=== PATIENT | female | born 1970 | race African-American/Black ===

== ENCOUNTER 2017-11-18 07:48 | Inpatient (IN) | payer OTHER, BC ==
[2017-11-17 12:31] VITALS: BMI 37.8
[2017-11-18] MEDS ORDERED: ROPIVACAINE HCL 0.5% 30ML VIAL ONE (08:09)
[2017-11-18] MEDS ORDERED: DEXAMETHASONE SOD PHOSPHATE/PF 10 MG/ML SDV ONE (08:09)
[2017-11-18] MEDS ORDERED: MIDAZOLAM HCL 2 MG/2 ML SINGLE DOSE VIAL ONE ×2 (08:10)
--- NOTE | 2017-11-18 08:44 | HP ---
Past Medical History - Primary Care Physician PCP:: Oral Loya - Admission Chief Complaint: menometrorrhagia, anemia, adenomyosis History of Present Illness: 47 yo f with one previous c/s , hx of of heavy irregular vaginal bleeding , adenomyosis, severe anemia, txed with iron infusion , cont to be severly anemic, declined hormonal and ablation, requesting hysterectomy, risks has discussed with patient. History Source: Patient Limitations to Obtaining History: No Limitations - Past Medical History Cardiovascular: Yes: HTN Pulmonary: Yes: Asthma, COPD ...: 1 ...Para: 1 Heme/Onc: Yes: Anemia - Past Surgical History Past Surgical History: Yes: Hx Myomectomy: No Hx Transabdominal Cerclage: No - Smoking History Smoking history: Never smoked Have you smoked in the past 12 months: No - Alcohol/Substance Use Hx Alcohol Use: No - Social History History of Recent Travel: No Home Medications - Allergies Allergies/Adverse Reactions: Allergies Allergy/AdvReac Type Severity Reaction Status Date / Time clarithromycin [From Biaxin] Allergy Severe Hives Verified 11/17/17 12:52 - Home Medications Home Medications: Ambulatory Orders Ferrous Sulfate 325 mg PO TID 08/28/17 Metoprolol Succinate [Toprol Xl] 50 mg PO DAILY 08/28/17 Olmesartan/Hydrochlorothiazide [Benicar Hct 40-25 mg Tablet] 1 tab PO DAILY Albuterol Sulfate Inhaler - [Ventolin Hfa Inhaler -] 1 - 2 inh PO PRN PRN Fluticasone/Salmeterol [Advair 250-50 Diskus] 1 each IH DAILY 11/17/17 Nasonex 50 mcg PRN 11/17/17 Review of Systems - Review of Systems Constitutional: reports: Lethargy, Weakness Eyes: reports: No Symptoms HENT: reports: No Symptoms Neck: reports: No Symptoms Cardiovascular: reports: No Symptoms Respiratory: reports: No Symptoms Gastrointestinal: reports: Abdominal Pain, Bloating Genitourinary: reports: Vaginal Bleeding Breasts: reports: No Symptoms Reported Musculoskeletal: reports: No Symptoms Integumentary: reports: No Symptoms Neurological: reports: No Symptoms Endocrine: reports: No Symptoms Hematology/Lymphatic: reports: No Symptoms Physical Exam-OUTREACH EDUCATOR Vital Signs: Vital Signs Temperature 98.2 F 11/18/17 08:11 Pulse Rate 76 11/18/17 08:11 Respiratory Rate 18 11/18/17 08:11 Blood Pressure 121/66 11/18/17 08:11 O2 Sat by Pulse Oximetry (%) 99 11/18/17 08:12 Constitutional: Yes: Well Nourished, No Distress, Calm Eyes: Yes: WNL, Conjunctiva Clear, EOM Intact HENT: Yes: WNL, Atraumatic, Normocephalic Neck: Yes: WNL, Supple, Trachea Midline Cardiovascular: Yes: WNL, Regular Rate and Rhythm Respiratory: Yes: WNL, Regular, CTA Bilaterally Gastrointestinal: Yes: WNL ...Rectal Exam: Yes: WNL Renal/: Yes: WNL Pelvis: Yes: WNL External Genitalia: Yes: Normal Vaginal Exam: Yes: Normal Cervix: Yes: Normal Uterus: Yes: Enlarged, Firm Adnexa: Not Palpable: Left, Right Breast(s): Yes: WNL Musculoskeletal: Yes: WNL Extremities: Yes: WNL Edema: No Integumentary: Yes: WNL Neurological: Yes: WNL, Alert, Oriented ...Motor Strength: WNL Psychiatric: Yes: WNL, Alert, Oriented Problem List - Problem (1) Uterus, adenomyosis Code(s): N80.0 - ENDOMETRIOSIS OF UTERUS (2) Anemia Code(s): D64.9 - ANEMIA, UNSPECIFIED Qualifiers: Anemia type: iron deficiency Iron deficiency anemia type: chronic blood loss Qualified Code(s): D50.0 - Iron deficiency anemia secondary to blood loss (chronic) Assessment/Plan supracervical abdominal hysterectomy , bilateral oleksandr;pingectomy. possible BSO
[2017-11-18] MEDS ORDERED: ceFAZolin 2 GRAM PREMIX BAG IVPB ONE (09:00)
[2017-11-18] MEDS ORDERED: ROCURONIUM BROMIDE 50 MG/5 ML VIAL ONE ×2 (09:34→10:20)
[2017-11-18] MEDS ORDERED: PROPOFOL 20 ML ONE ×2 (09:34→09:44)
[2017-11-18] MEDS ORDERED: ALBUTEROL SO4 18 GM HFA INHALER IH ONE (09:34)
[2017-11-18] MEDS ORDERED: fentaNYL CITRATE 250 MCG/5 ML VIAL ONE (09:34)
[2017-11-18] MEDS ORDERED: ceFAZolin SODIUM 1 GM VIAL ONE (09:55)
[2017-11-18] MEDS ORDERED: ceFAZolin SODIUM 1 GM VIAL IVPB ONE (09:57)
[2017-11-18] MEDS ORDERED: DEXAMETHASONE SOD PHOSPHATE 4 MG/1 ML VIAL ONE (09:59)
[2017-11-18] MEDS ORDERED: ePHEDrine SULFATE 50 MG/1 ML AMPULE ONE (10:02)
[2017-11-18] MEDS ORDERED: ONDANSETRON 4 MG/2 ML VIAL IVPUSH PRN ×2 (10:34→12:17)
[2017-11-18] MEDS ORDERED: PROMETHAZINE HCL 25 MG/1 ML VIAL IVPUSH PRN (10:34)
[2017-11-18] MEDS ORDERED: LACTATED RINGERS SOLUTION 1,000 ML IV SCH (10:45)
[2017-11-18] MEDS ORDERED: HYDROmorphone *PCA* 10MG/50ML DISP.SYRIN PCA SCH (10:45)
[2017-11-18] MEDS ORDERED: GLYCOPYRROLATE 0.2 MG/1 ML VIAL ONE (11:50)
[2017-11-18] MEDS ORDERED: NEOSTIGMINE METHYLSULFATE 0.5 MG/ML - 10 ML MDV ONE (11:51)
[2017-11-18] MEDS ORDERED: oxyCODONE HCL 5 MG TABLET PO PRN (12:17)
[2017-11-18] MEDS: ELECTROLYTE-148 SOLN 1,000 ML IV SCH ×2 (12:30→23:41)
[2017-11-18] MEDS ORDERED: HYDROmorphone *PCA* 10MG/50ML DISP.SYRIN PCA ONE (12:40)
[2017-11-18] MEDS: IBUPROFEN 800 MG/8 ML IJ IVPB PRN ×2 (12:55→19:41)
--- NOTE | 2017-11-18 13:01 | OP ---
DATE OF OPERATION: 11/18/2017 PREOPERATIVE DIAGNOSES: Menometrorrhagia, anemia, pelvic pain. POSTOPERATIVE DIAGNOSES: Menometrorrhagia, anemia, pelvic pain, endometriosis, and pelvic adhesions, rule out adenomyosis. SURGEON: Oral Loya MD STUDIO TECHNICIAN VIDEO OPERATOR: Og Her MD ANESTHESIA: General. ESTIMATED BLOOD LOSS: 100 mL DESCRIPTION OF OPERATION: Patient was taken to the operating room. Under adequate general anesthesia and in the supine position, abdomen and perineum were prepped and draped. Pfannenstiel abdominal skin incision was made over the previous incision. Abdominal wall was cut layer by layer until peritoneum was exposed. Upon entering the abdominal cavity, there were multiple omental adhesions to the anterior abdominal wall, which were lysed with cautery, and bowels were packed away. Both ovaries were stuck behind the uterus to the cul-de-sac area, and there was evidence of endometrioma on the right ovary with chocolate cyst. There was also cul-de-sac adhesion of the uterus, and the uterus appeared to be bulky. Bladder was normal. Both round ligaments and uterosacral ligaments were prominent. At this time, both round ligaments were identified, clamped with a LigaSure bipolar cautery, cauterized, and cut. Then, two straight Kochers were placed at the cornual region of the uterus. Then, both ovaries were lysed meticulously with Metzenbaum scissors and also cautery from the posterior cul-de-sac area. There was an endometrioma in the right ovary. At this time, the infundibulopelvic ligament was identified on the right, a hole made in the broad ligament, and a Honey clamp was placed in the infundibulopelvic area, cut, and then, the infundibulopelvic area on the right side was tied with 2-0 Vicryl ties. At this time, the bladder flap was developed, and bladder was pushed down. The left tube was identified and grasped with a Jackson clamp and cauterized along with the salpinx with the bipolar LigaSure cautery, and then, left tube was removed. At this time, the left ovary and ligament were grasped with a Honey clamp and cut and the clamp replaced with 0 Vicryl ligature suture. At this time, bladder was further pushed down. Uterine artery was identified bilaterally, clamped with Honey clamp, cut, and the clamp replaced with 0 Vicryl suture bilaterally. Bladder was further pushed down, and then, paracervical area was grasped with Honey clamp, cut, and the clamp replaced with a ligature suture bilaterally. At this time, the specimen was removed above the cervix, and the cervix was sutured with 1 Vicryl continuous interlocking suture. Then, pelvic cavity several times irrigated. There was bleeding from the left cervical stump, which was sutured with ligature suture of 1 Vicryl in an interrupted suture, and hemostasis was established. Then, the pelvic cavity several times irrigated, and then, no more bleeding was seen. All the pedicles were dry. All the lap pad, sponge, and instrument counts were correct. Then, both ureters were visually checked, were normal. Peritoneum was closed with 0 Vicryl continuous suture. Muscles were brought together with interrupted using of 0 Vicryl. Fascia was closed with 0 Vicryl continuous suture. Subcutaneous fat with interrupted suture of 0 Vicryl, and the skin was closed with 3-0 Vicryl continuous, subcuticular suture. The patient tolerated the procedure well, left the OR in good condition. Parth [id number]
[2017-11-18] MEDS: CEFAZOLIN 1 GM/D5W 1 GM/50 ML BAG IVPB SCH (17:46)
[2017-11-18] MEDS ORDERED: ALBUTEROL SO4 18 GM HFA INHALER IH PRN (19:28)
[2017-11-19] MEDS: CEFAZOLIN 1 GM/D5W 1 GM/50 ML BAG IVPB SCH ×2 (01:19→10:15)
[2017-11-19] MEDS: IBUPROFEN 800 MG/8 ML IJ IVPB PRN ×2 (07:33→13:36)
--- NOTE | 2017-11-19 08:29 | PN ---
Progress Note (short form) - Note Progress Note: Anesthesia POD#2 S/P Hysterectomy and DISPLAY MANAGER Patient is on oral meds,no N/V Ok to Discontinue the DISPLAY MANAGER. Glo Rene MD.
[2017-11-19] MEDS: ELECTROLYTE-148 SOLN 1,000 ML IV SCH (08:34)
[2017-11-19] MEDS ORDERED: BISACODYL 10 MG SUPP.RECT PR PRN (09:15)
[2017-11-19] MEDS ORDERED: PANTOPRAZOLE 40 MG TABLET (FP) PO PRN (09:18)
[2017-11-19] MEDS ORDERED: PATIENT'S OWN MEDICATION (NON-FORMULARY) (Olmesartan/Hydrochlorothiazide [Benicar Hct 40-2 PO SCH (10:00)
[2017-11-19] MEDS: ENOXAPARIN NA (PORCINE) 40 MG/0.4 ML DISP.SYRIN SQ SCH (10:17)
[2017-11-19 10:25] LABS: HEMATOCRIT 24.8 % (32.4-45.2); HEMOGLOBIN 7.7 GM/dL (10.7-15.3); MCHC 31.1 g/dl (32.0-36.0); MEAN CELL VOLUME 60.9 fl (80-96); PLATELET COUNT 255 K/MM3 (134-434); RBC 4.07 M/mm3 (3.60-5.2); RDW 19.9 % (11.6-15.6); WHITE BLOOD COUNT 10.6 K/mm3 (4.0-10.0)
[2017-11-19 10:26] LABS: MCH 18.9 pg (25.7-33.7)
[2017-11-19] MEDS: VALSARTAN 160 MG TABLET (UD) PO SCH (10:42)
[2017-11-19] MEDS: HYDROCHLOROTHIAZIDE 25 MG TABLET (FP) PO SCH (10:43)
[2017-11-19 11:04] LABS: ANION GAP 6 (8-16); BLOOD UREA NITROGEN 12 mg/dL (7-18); CALCIUM 7.8 mg/dL (8.5-10.1); CHLORIDE 106 mmol/L (98-107); CO2 27 mmol/L (21-32); CREATININE 0.7 mg/dL (0.55-1.02); GLUCOSE,RANDOM 145 mg/dL (74-106); POTASSIUM 3.7 mmol/L (3.5-5.1); SODIUM 139 mmol/L (136-145)
[2017-11-19] MEDS: SIMETHICONE 80 MG TAB.CHEW (FP) PO PRN ×2 (12:03→18:56)
[2017-11-19] MEDS: ACETAMINOPHEN 500 MG TABLET (FP) PO PRN ×2 (12:54→18:46)
--- NOTE | 2017-11-19 18:29 | PN ---
Progress Note (short form) - Note Progress Note: pod 1,s/p supracervical hysterectomy feels tiered , has mild incisionl pain scale CBC, BMP 11/19/17 09:55 11/19/17 09:55 Last Vital Signs Temp Pulse Resp BP Pulse Ox 98.5 F 72 18 121/68 100 11/19/17 14:00 11/19/17 14:00 11/19/17 14:00 11/19/17 14:00 11/18/17 16:47 abdomen soft, no distension, no cva, BS present incision dry, clean no vaginal bleeding no calf tenderness impression doing well , anemia, asymptomatic, bp , pulse normal, blood transfusion discussed , declined advised ambulate, roblero management Problem List - Problems (1) Uterus, adenomyosis Code(s): N80.0 - ENDOMETRIOSIS OF UTERUS (2) Anemia Code(s): D64.9 - ANEMIA, UNSPECIFIED Qualifiers: Anemia type: iron deficiency Iron deficiency anemia type: chronic blood loss Qualified Code(s): D50.0 - Iron deficiency anemia secondary to blood loss (chronic)
[2017-11-19] MEDS ORDERED: PCA PUMP KEY 1 EACH EACH ONE (18:40)
[2017-11-19] MEDS: IBUPROFEN 600 MG TABLET (FP) PO PRN (20:45)
[2017-11-20] MEDS: ACETAMINOPHEN 500 MG TABLET (FP) PO PRN ×2 (05:59→12:01)
[2017-11-20] MEDS: SIMETHICONE 80 MG TAB.CHEW (FP) PO PRN ×2 (07:46→13:42)
[2017-11-20] MEDS: IBUPROFEN 600 MG TABLET (FP) PO PRN ×2 (07:47→13:42)
[2017-11-20] MEDS: ENOXAPARIN NA (PORCINE) 40 MG/0.4 ML DISP.SYRIN SQ SCH (10:19)
[2017-11-20] MEDS: VALSARTAN 160 MG TABLET (UD) PO SCH (10:31)
[2017-11-20] MEDS: HYDROCHLOROTHIAZIDE 25 MG TABLET (FP) PO SCH (10:32)
--- NOTE | 2017-11-20 13:48 | PN ---
Progress Note (short form) - Note Progress Note: pod 2, doing well, ambulating, passing gas, no dizziness, no headacheambulate, CBC, BMP 11/19/17 09:55 11/19/17 09:55 Last Vital Signs Temp Pulse Resp BP Pulse Ox 97.6 F 74 20 133/84 100 11/20/17 08:49 11/20/17 08:49 11/20/17 08:49 11/20/17 08:49 11/18/17 16:47 abdomen soft, no distension, no cva , incision dry, clean, no discharge no calf tenderness , no edema plan d/c home on po iron, vit innstruction given if pain, bleeding, dizziness , call md, follow up office 2 weeks follow up with PCP as well Problem List - Problems (1) Uterus, adenomyosis Code(s): N80.0 - ENDOMETRIOSIS OF UTERUS (2) Anemia Code(s): D64.9 - ANEMIA, UNSPECIFIED Qualifiers: Anemia type: iron deficiency Iron deficiency anemia type: chronic blood loss Qualified Code(s): D50.0 - Iron deficiency anemia secondary to blood loss (chronic)
--- NOTE | 2017-11-20 13:51 | DS ---
Physical Exam-TELEMETRY NURSE Vital Signs: Vital Signs Temperature 97.6 F 11/20/17 08:49 Pulse Rate 74 11/20/17 08:49 Respiratory Rate 20 11/20/17 08:49 Blood Pressure 133/84 11/20/17 08:49 O2 Sat by Pulse Oximetry (%) 100 11/18/17 16:47 Constitutional: Yes: Well Nourished, No Distress, Calm Eyes: Yes: WNL, Conjunctiva Clear, EOM Intact HENT: Yes: WNL, Atraumatic, Normocephalic Neck: Yes: WNL, Supple, Trachea Midline Cardiovascular: Yes: WNL, Regular Rate and Rhythm Respiratory: Yes: WNL, Regular, CTA Bilaterally Gastrointestinal: Yes: WNL ...Rectal Exam: Yes: WNL Renal/: Yes: WNL Breast(s): Yes: WNL Musculoskeletal: Yes: WNL Extremities: Yes: WNL Edema: No Integumentary: Yes: WNL Wound/Incision: Yes: Clean/Dry, Well Approximated, Sutures Intact Neurological: Yes: WNL, Alert, Oriented ...Motor Strength: WNL Psychiatric: Yes: WNL, Alert, Oriented Labs: CBC, BMP 11/19/17 09:55 11/19/17 09:55 Discharge Summary Reason For Visit: ADENOMYOSIS, IRON DEFICIENCY SECONDARY TO BLOOD LO Current Active Problems Anemia (Acute) Uterus, adenomyosis (Acute) Procedures: Principal: supracervical abdominal hysterectomy, RT salpingooophrectomy, LT salpingectomy Hospital Course: hx of anemai, was asymptomatic, d/c home on iron, vit Condition: Good - Instructions Diet, Activity, Other Instructions: regular diet, follow up office 2 weeks, if fever, pain, call md Referrals: Oral Loya MD [Staff Physician] - Disposition: HOME - Home Medications Comprehensive Discharge Medication List: Ambulatory Orders Ferrous Sulfate 325 mg PO TID 08/28/17 Metoprolol Succinate [Toprol Xl] 50 mg PO DAILY 08/28/17 Olmesartan/Hydrochlorothiazide [Benicar Hct 40-25 mg Tablet] 1 tab PO DAILY Albuterol Sulfate Inhaler - [Ventolin Hfa Inhaler -] 1 - 2 inh PO PRN PRN Fluticasone/Salmeterol [Advair 250-50 Diskus] 1 each IH DAILY 11/17/17 Nasonex 50 mcg PRN 11/17/17 Ibuprofen [Motrin -] 600 mg PO QID #28 tablet 11/19/17 Acetaminophen [Tylenol -] 1,000 mg PO Q6H #60 tablet 11/20/17
[2017-11-20 13:52] VITALS: BP 139/69; PULSE 69; TEMP 98
--- NOTE | 2017-11-20 15:29 | PATH ---
Surgical Pathology Report Patient Name: DENISE MORENO [facility]. Rec. #: [id number] /Age/Gender: 1970 (Age: 47) / F Account: [id number] Location: [facility] OBS/CONSTRUCTION EQUIPMENT TECHNICIAN Taken: 11/18/2017 Received: 11/18/2017 Reported: 11/20/2017 Physicians: Oral Loya M.D. Specimen(s) Received A: LEFT FALLOPIAN TUBE B: UTERUS, RIGHT TUBES AND RIGHT OVARY C: TISSUE OF SKIN LESION LOCATED NEAR INCESION Clinical History Adenomyosis, anemia, menorrhagia Final Diagnosis A. FALLOPIAN TUBE, LEFT, SALPINGECTOMY: FALLOPIAN TUBE WITH PARATUBAL CYST. B. UTERUS, FALLOPIAN TUBE AND OVARY, RIGHT, SUPRACERVICAL HYSTERECTOMY, OOPHORECTOMY AND SALPINGECTOMY: SECRETORY ENDOMETRIUM. MYOMETRIUM WITH FOCAL ADENOMYOSIS AND LEIOMYOMA(S). BENIGN ENDOCERVICAL TISSUE. RIGHT FALLOPIAN TUBE WITH PARATUBAL CYST. RIGHT OVARY WITH ENDOMETRIOTIC CYST(S). C. SKIN, LESION, EXCISION: BENIGN CAPILLARY HEMANGIOMA. Electronically Signed Namrata Rausch M.D. Gross Description A. Received in formalin labeled "left fallopian tube," is a 4.5 cm in length fimbriated fallopian tube. The outer surface is dewitt-estrada with a 1 cm in greatest dimension attached paratubal cyst. Sectioning reveals an unremarkable lumen. Greeting Card Editor sections are submitted in 2 cassettes as follows: 1-fimbria; 2-cross sections of fallopian tube. B. Received in formalin labeled "uterus, right fallopian tube, right ovary," is a 219 g supracervically amputated uterus with an attached right fallopian tube and right ovary. The uterus measures 8.5 cm from superior to inferior, 7 cm from left to right and 6.8 cm from anterior to posterior. The serosa is dewitt-pink and smooth. The endometrial cavity measures 6.5 cm in length and 3 cm from cornu to cornu. The endometrium is dewitt and lush, measuring up to 0.4 cm in thickness. The myometrium is dewitt-pink and trabeculated, measuring up to 3.3 cm in thickness. The myometrium displays multiple intramural nodules, measuring up to 1.3 cm in greatest dimension. The cut surface of the nodules is dewitt, rubbery and displays a whorled architecture. No areas of hemorrhage or necrosis are identified. The right fimbriated fallopian tube measures 5 cm in length. The outer surface is dewitt-estrada and smooth. Sectioning reveals an unremarkable lumen. The right ovary measures 4.5 x 3.3 x 3.0 cm. The outer surface is dewitt-estrada with a focal defect. Sectioning reveals multiple hemorrhagic cysts containing brown blood, measuring up to 1.8 cm in greatest dimension. Greeting Card Editor sections are submitted in 13 cassettes as follows: 1-cervical stump margin of resection; 3-0-doqidblx endomyometrium; 4-posterior endomyometrium; 5-additional posterior endomyometrium; 5-2-dsrzxlgv; 8-right fallopian tube fimbria; 9-cross sections of right fallopian tube; 10-13-right ovary. C. Received in formalin labeled "skin lesion near incision," is a 0.5 x 0.3 x 0.2 cm dewitt, polypoid portion of skin. The specimen is submitted in toto in one cassette. 11/19/2017 [facility]11/19/2017
== END 2017-11-20 15:50 | disposition home or self-care (01) | DRG 743 ==
LOC: JSAMEDAYSX 07:48 → EDSTATUS 09:00 → J3W 15:20
PROVIDERS: ADMIT Obstetrics & Gynecology; ATTEND Obstetrics & Gynecology
PROC: 0UT70ZZ Resection of Bilateral Fallopian Tubes, Open Approach (ICD-10-PCS; 2017-11-18)
PROC: 0UT90ZL Resection of Uterus, Supracervical, Open Approach (ICD-10-PCS; principal; 2017-11-18 09:00)
DX: N80.0 Endometriosis of uterus (principal); N92.1 Excessive and frequent menstruation with irregular cycle; I10 Essential (primary) hypertension; J44.9 Chronic obstructive pulmonary disease, unspecified; D50.0 Iron deficiency anemia secondary to blood loss (chronic)
CPT/HCPCS: 36415; 80048; 84703; 85027; 86850; 86900; 86901; 88302-TC; 88305-TC; 88309-TC; 94010; 94760

== ENCOUNTER 2017-12-07 11:56 | Emergency (ER) | payer OTHER, BC ==
[2017-12-07 12:05] VITALS: BP 160/55; PULSE 63; TEMP 98.5; BMI 37.8
--- NOTE | 2017-12-07 12:24 | PDOC ---
History of Present Illness - General Chief Complaint: Revisit,Wound Recheck Stated Complaint: POST-SURG/ PACKAGE OPENING History Source: Patient Exam Limitations: No Limitations - History of Present Illness Initial Comments: 12/07/17 13:24 Pt is a 47 yo F with PMHx of HTN and menorrhagia now presenting with a hx of poor wound healing s/p hysterectomy on 11/18 with increased bleeding and pus this am. Pt had noticed opening at the healing pfannestiel incison site for s/p hysterectomy and followed up with Dr Kaminski on Friday as an outpatient. She was reassured and superficial skin stitches were removed. She was advised to keep the site clean with soap and water. This morning she noticed what she thought was pus. She has no fever, no chills, no increased frequency, no dysuria.She has a 5/10 pain when laying down, but 8/10 when walking. No radiation. Pt has used advil with limited improvement, but does not want opiates. 12/07/17 13:48 Timing/Duration: unsure Severity: moderate Past History - Past Medical History Allergies/Adverse Reactions: Allergies Allergy/AdvReac Type Severity Reaction Status Date / Time clarithromycin [From Biaxin] Allergy Severe Hives Verified 12/07/17 12:04 Home Medications: Ambulatory Orders Ferrous Sulfate 325 mg PO TID 08/28/17 Metoprolol Succinate [Toprol Xl] 50 mg PO DAILY 08/28/17 Olmesartan/Hydrochlorothiazide [Benicar Hct 40-25 mg Tablet] 1 tab PO DAILY Albuterol Sulfate Inhaler - [Ventolin Hfa Inhaler -] 1 - 2 inh PO PRN PRN Fluticasone/Salmeterol [Advair 250-50 Diskus] 1 each IH DAILY 11/17/17 Nasonex 50 mcg PRN 11/17/17 Ibuprofen [Motrin -] 600 mg PO QID #28 tablet 11/19/17 Acetaminophen [Tylenol -] 1,000 mg PO Q6H #60 tablet 11/20/17 Bacitracin - [Bacitracin Topical Ointment -] 1 applic TP BID #1 tube 12/07/17 Anemia: Yes Asthma: Yes (no recent attack) Cancer: No Cardiac Disorders: No (palpitations) CVA: No COPD: No CHF: No Dementia: No Diabetes: No GI Disorders: Yes (acid reflux) Disorders: No HTN: Yes Hypercholesterolemia: No Liver Disease: No Seizures: No Thyroid Disease: No - Suicide/Smoking/Psychosocial Hx Smoking History: Never smoked Have you smoked in the past 12 months: No Hx Alcohol Use: No Drug/Substance Use Hx: No Substance Use Type: None Hx Substance Use Treatment: No Review of Systems - Review of Systems Able to Perform ROS?: Yes Is the patient limited Yoruba proficient: No Constitutional: No: Chills, Diaphoresis, Fever, Loss of Appetite, Weakness HEENTM: No: Blurred Vision Respiratory: No: Cough, Orthopnea, Shortness of Breath, SOB at Rest, Stridor, Wheezing Cardiac (ROS): No: Chest Pain, Edema, Palpitations ABD/GI: Yes: Abdominal cramping (pain at site of wound). No: Abdominal Distended, Constipated, Diarrhea, Difficulty Swallowing, Nausea, Poor Appetite : No: Burning, Dysuria, Discharge, Frequency, Hematuria, Incontinence, Pain Musculoskeletal: No: Back Pain Integumentary: Yes: Other (mulitple ulcers) Neurological: No: Headache, Numbness, Paresthesia Hematologic/Lymphatic: Yes: Anemia *Physical Exam - Vital Signs Last Vital Signs Temp Pulse Resp BP Pulse Ox 98.5 F 63 18 160/55 99 12/07/17 12:00 12/07/17 12:00 12/07/17 12:00 12/07/17 12:00 12/07/17 12:00 - Physical Exam General Appearance: Yes: Appropriately Dressed, Mild Distress HEENT: positive: Pharynx Normal Neck: positive: Supple. negative: Tender Respiratory/Chest: positive: Lungs Clear, Normal Breath Sounds Cardiovascular: positive: Regular Rhythm, Regular Rate, S1, S2 Gastrointestinal/Abdominal: positive: Normal Bowel Sounds, Tender (lower abdomen , ), Soft, Other (Multiple healing clean ulcers along wound site, largest about 1.5cm, no pus , no active bleeding) Musculoskeletal: negative: CVA Tenderness Extremity: positive: Normal Capillary Refill, Normal Inspection Integumentary: positive: Dry, Warm Neurologic: positive: Fully Oriented, Alert, Motor Strength 5/5 ED Treatment Course - LABORATORY CBC & Chemistry Diagram: 12/07/17 13:57 12/07/17 13:57 Medical Decision Making - Medical Decision Making 12/07/17 13:55 Basic labs- cbc, CMP, Pt/Ptt, pt gave a hx of anemia Wound swab Will discuss with process control board operator when labs arrive Bacitracin topical on wound NSAIDS for pain- Iv toradol 15mg stat 12/07/17 14:50 Plan is to discuss with Dr Kaminski. For likely discharge and outpatient follow up 12/07/17 15:[address] No Mcbride who agrees the patient can follow up as an outpatient within the week. To continue to keep the area with pannus dry with gauze She may apply bacitracin daily *DC/Admit/Observation/Transfer Diagnosis at time of Disposition: Delayed surgical wound healing - Discharge Dispostion Disposition: HOME Admit: No - Prescriptions Prescriptions: Bacitracin - [Bacitracin Topical Ointment -] 1 applic TP BID #1 tube - Referrals - Patient Instructions Printed Discharge Instructions: How to Care for a Surgical Wound Additional Instructions: You came in because you were concerned about increasing drainage and pain from the surgical wound site We examined the wound and did tests that did not show any evidence of infection Continue to use motrin or advil for the pain We also discussed with your obgyn and you should follow up as an outpatient in within a week Please follow up with your primary doctor in a week's time We are prescribing bacitracin ointment to use on the wound once a day, apart from which you should not use any other ointment Keep the open wound areas dry using a guaze, You may change the guaze if it gets soaked If you think your symptoms are getting worse with foul smelling discharge or fevers, please return to the emergency room. - Post Discharge Activity - Attestations Physician Attestion: 12/07/17 14:52 Saba Gamboa MD
--- NOTE | 2017-12-07 12:26 | PDOC ---
Attending Attestation - Resident Resident Name: Saba Gamboa I - HPI HPI: 12/07/17 13:39 Pt presents to the ED complaining of draniage from a incision from hysterectomy on 11/18. Denies fever. Seen by Dr. Beaulieu last week, who assured her that wound was healing well. 12/09/17 08:21 12/09/17 08:21 - Physicial Exam PE: 12/09/17 08:21 On exam, patient has very small (1 cm) opening in the skin Subcutaneous tissue is closed. No surrounding erythema or other signs of infection. - Medical Decision Making 12/09/17 08:21 Will treat wound with bacitricin, check labs to ensure that WBC count is not elevated and likely discharge home with referral to Dr. Beaulieu.
[2017-12-07] MEDS ORDERED: KETOROLAC TROMETHAMINE 30 MG/1 ML VIAL IM ONE ×2 (13:21→13:57)
[2017-12-07] MEDS ORDERED: KETOROLAC TROMETHAMINE 30 MG/1 ML VIAL ONE (13:48)
[2017-12-07] MEDS ORDERED: KETOROLAC TROMETHAMINE 15 MG/ML VIAL IVPUSH ONE (13:48)
[2017-12-07] MEDS ORDERED: KETOROLAC TROMETHAMINE 30 MG/1 ML VIAL IVPUSH ONE (14:00)
[2017-12-07 14:11] LABS: BASO % 1.1 % (0-2.0); EOS % 2.8 % (0-4.5); HEMATOCRIT 28.1 % (32.4-45.2); HEMOGLOBIN 8.6 GM/dL (10.7-15.3); LYMPH % 30.2 % (8-40); MCHC 30.8 g/dl (32.0-36.0); MEAN CELL VOLUME 62.4 fl (80-96); MEAN PLT VOLUME 9.1 fl (7.5-11.1); MONO % 8.2 % (3.8-10.2); NEUT % 57.7 % (42.8-82.8); PLATELET COUNT 297 K/MM3 (134-434); RDW 20.9 % (11.6-15.6); WHITE BLOOD COUNT 5.7 K/mm3 (4.0-10.0)
[2017-12-07 14:12] LABS: MCH 19.2 pg (25.7-33.7)
[2017-12-07 14:20] LABS: INR 1.16 (0.82-1.09); PROTHROMBIN TIME (PATIENT) 13.1 SEC (9.7-13.0)
[2017-12-07 14:22] LABS: ACTIVATED PTT 29.8 SECONDS (26.9-34.4)
[2017-12-07 14:28] LABS: ALBUMIN 3.2 g/dl (3.4-5.0); ALK PHOS 73 U/L (45-117); ANION GAP 6 (8-16); BILIRUBIN,TOTAL 0.5 mg/dL (0.2-1.0); BLOOD UREA NITROGEN 8 mg/dL (7-18); CALCIUM 8.2 mg/dL (8.5-10.1); CHLORIDE 109 mmol/L (98-107); CO2 25 mmol/L (21-32); CREATININE 0.6 mg/dL (0.55-1.02); GLUCOSE,RANDOM 83 mg/dL (74-106); POTASSIUM 4.1 mmol/L (3.5-5.1); SGOT/AST 21 U/L (15-37); SGPT/ALT 26 U/L (12-78); SODIUM 140 mmol/L (136-145); TOT PROT 7.1 g/dl (6.4-8.2)
== END 2017-12-07 16:30 | disposition home or self-care (01) ==
LOC: JER 11:56
PROC: 3E0333Z Introduction of Anti-inflammatory into Peripheral Vein, Percutaneous Approach (ICD-10-PCS; principal; 2017-12-07)
DX: T81.89XA Other complications of procedures, not elsewhere classified, initial encounter (principal); J45.909 Unspecified asthma, uncomplicated; D64.9 Anemia, unspecified; I10 Essential (primary) hypertension; K21.9 Gastro-esophageal reflux disease without esophagitis
CPT/HCPCS: 36415; 80053; 85025; 85610; 85730; 87070; 87205; 99282-25